=== PATIENT | male | born 1980 | race Caucasian/White ===

== ENCOUNTER 2017-03-19 09:51 | Inpatient (IN) | payer OTHER ==
[~2017-03-19] VITALS: Ht 177.8 cm; Wt 60.2 kg
[2017-03-19] MEDS ORDERED: LORazepam 2 MG/ML, 1ML ONE (09:57)
[2017-03-19] MEDS ORDERED: VANCOMYCIN PER PHARMACY MC ONE (10:00)
[2017-03-19] MEDS ORDERED: MIDAZOLAM 1 MG/ML, 5ML IVPush ONE (10:00)
[2017-03-19] MEDS ORDERED: SODIUM CHLORIDE 0.9% 1,000ML IVBOLUS ONE ×2 (10:00→11:00)
[2017-03-19] MEDS ORDERED: SUCCINYLCHOLINE 20 MG/ML, 10ML IVPush ONE (10:00)
[2017-03-19] MEDS ORDERED: CEFTRIAXONE PMX 1GM/50ML 50 ML IVPB ONE (10:00)
[2017-03-19] MEDS ORDERED: ACETAMINOPHEN 650 MG SUPP PR ONE (10:00)
[2017-03-19] MEDS ORDERED: SODIUM CHLORIDE FLUSH 10ML SYR IVF ONE (10:00)
[2017-03-19] MEDS ORDERED: DEXAMETHASONE 4 MG/ML, 5ML ONE (10:07)
[2017-03-19] MEDS ORDERED: CEFTRIAXONE 1,000 MG ONE (10:07)
[2017-03-19] MEDS: NOREPINEPHRINE 4 MG in SODIUM CHLORIDE 0.9% 246 ML IV PRN ×4 (10:26→23:51)
[2017-03-19] MEDS ORDERED: PLEASE ENTER ALLERGIES MC SCH ×2 (10:30)
[2017-03-19] MEDS ORDERED: PLEASE ENTER HEIGHT AND WEIGHT MC SCH (10:30)
[2017-03-19] MEDS ORDERED: DEXAMETHASONE 4 MG/ML, 1ML IVPush ONE (10:30)
[2017-03-19] MEDS ORDERED: DEXTROSE 5%, 250ML ONE (10:30)
[2017-03-19] MEDS ORDERED: NOREPINEPHRINE 1 MG/ML, 4ML ONE (10:30)
[2017-03-19] MEDS ORDERED: SODIUM CHLORIDE 0.9%, 250ML ONE (10:30)
[2017-03-19] MEDS ORDERED: PHENYLEPHRINE 10 MG/ML ONE (10:30)
[2017-03-19 10:34] LABS: ABG COLLECTION SITE RIGHT RADIAL; COLLATERAL CIRCULATION TESTING NORMAL; FIO2 60 %
[2017-03-19] MEDS: PHENYLEPHRINE 20 MG in SODIUM CHLORIDE 0.9% 248 ML IV PRN ×4 (10:34→23:32)
[2017-03-19 10:36] LABS: HEMATOCRIT 38.4 % (39.2-51.8); HEMOGLOBIN 12.8 g/dL (13.7-18.0); WHITE BLOOD COUNT 15.4 x10^3/uL (3.4-10)
[2017-03-19 10:49] LABS: ASPARTATE AMINO TRANSFERASE 52 U/L (15-37); BLOOD UREA NITROGEN 27 mg/dL (7-18)
[2017-03-19 10:57] LABS: RAPID INFLUENZA A Negative (Negative); RAPID INFLUENZA B Negative (Negative)
[2017-03-19] MEDS ORDERED: EPINEPHRINE SYRINGE 0.1 MG/ML, 10ML IVPush ONE ×2 (11:00)
[2017-03-19] MEDS ORDERED: VECURONIUM 10 MG IVPush ONE (11:00)
[2017-03-19] MEDS ORDERED: ACETAMINOPHEN 650 MG SUPP ONE (11:24)
[2017-03-19] MEDS ORDERED: CEFTRIAXONE PMX 1GM/50ML 50 ML IV ONE (12:00)
[2017-03-19] MEDS ORDERED: VECURONIUM 10 MG ONE (12:00)
[2017-03-19] MEDS ORDERED: MIDAZOLAM 1 MG/ML, 5ML ONE (12:00)
[2017-03-19] MEDS ORDERED: PROPOFOL 10 MG/ML, 100ML IV ONE (12:00)
[2017-03-19] MEDS ORDERED: SUCCINYLCHOLINE 20 MG/ML, 10ML ONE (12:00)
[2017-03-19 12:03] LABS: PATH.CAST-FLAG NOT PRESENT; SPERM-FLAG NOT PRESENT; SRC-FLAG NOT PRESENT; XTAL-FLAG NOT PRESENT; YLC-FLAG NOT PRESENT
[2017-03-19] MEDS ORDERED: CEFTRIAXONE PMX 1GM/50ML 50 ML ONE (12:04)
[2017-03-19 12:14] LABS: ABG COLLECTION SITE RIGHT RADIAL; COLLATERAL CIRCULATION TESTING NORMAL
[2017-03-19 12:15] LABS: FIO2 100 %
[2017-03-19] MEDS ORDERED: POLYETHYLENE GLYCOL 17 GM PACKET PO PRN (12:30)
[2017-03-19] MEDS ORDERED: BISACODYL 10 MG SUPP PR PRN (12:30)
[2017-03-19] MEDS ORDERED: PHARMACOKINETIC CONSULTATION MC ONE (12:30)
[2017-03-19] MEDS ORDERED: VANCOMYCIN 1,200 MG in SODIUM CHLORIDE 0.9% 250 ML IV ONE (12:30)
[2017-03-19] MEDS ORDERED: VANCOMYCIN PER PHARMACY MC PRN (12:30)
[2017-03-19] MEDS ORDERED: FENTANYL PF 2,500 MCG in SODIUM CHLORIDE 0.9% 200 ML IV PRN (12:34)
[2017-03-19] MEDS: ACYCLOVIR 600 MG in SODIUM CHLORIDE 0.9% 250 ML IV SCH (13:17)
[2017-03-19] MEDS: SODIUM CHLORIDE 0.9% 1,000 ML IV SCH (13:22)
[2017-03-19] MEDS ORDERED: PROPOFOL 100 ML IV PRN (14:00)
[2017-03-19] MEDS: AMPICILLIN 2 GM in SODIUM CHLORIDE 0.9% 100 ML IV SCH ×3 (14:40→21:26)
[2017-03-19] MEDS ORDERED: VASOPRESSIN 100 UNIT in SODIUM CHLORIDE 0.9% 495 ML IV PRN (14:55)
[2017-03-19] MEDS ORDERED: PHARMACY MAY ADJ FOR RENAL FX MC SCH (15:00)
[2017-03-19] MEDS ORDERED: LIDOCAINE-MPF 1%, 2ML ENDO PRN (15:00)
[2017-03-19] MEDS ORDERED: ACETAMINOPHEN 650 MG/20.3 ML UDC NG PRN (15:00)
[2017-03-19 15:30] LABS: HIV 1&2 ANTIBODY SCREEN Nonreactive (Nonreactive); HIV-1 p24 ANTIGEN Nonreactive (Nonreactive)
[2017-03-19] MEDS: DEXAMETHASONE 4 MG/ML, 5ML IV SCH ×2 (16:58→23:18)
[2017-03-19] MEDS: OSELTAMIVIR 6 MG/ML ORAL SUSP PO SCH (21:26)
[2017-03-20] MEDS: CEFTRIAXONE PMX 2GM/50ML 50 ML IV SCH ×2 (00:20→11:59)
[2017-03-20] MEDS: ACYCLOVIR 600 MG in SODIUM CHLORIDE 0.9% 250 ML IV SCH ×3 (00:22→12:00)
[2017-03-20] MEDS: AMPICILLIN 2 GM in SODIUM CHLORIDE 0.9% 100 ML IV SCH ×6 (02:34→23:07)
[2017-03-20] MEDS ORDERED: NOREPINEPHRINE 8 MG in SODIUM CHLORIDE 0.9% 242 ML IV PRN (02:55)
[2017-03-20 03:30] VITALS: BP 119/75
[2017-03-20 04:12] LABS: HEMATOCRIT 40.3 % (39.2-51.8); HEMOGLOBIN 13.5 g/dL (13.7-18.0); WHITE BLOOD COUNT 18.2 x10^3/uL (3.4-10)
[2017-03-20 04:24] LABS: ASPARTATE AMINO TRANSFERASE 137 U/L (15-37); BLOOD UREA NITROGEN 21 mg/dL (7-18)
[2017-03-20 04:50] LABS: ABG COLLECTION SITE LEFT BRACHIAL
[2017-03-20] MEDS ORDERED: SODIUM BICARB 8.4%, 50ML SYRINGE IVPush STA (05:03)
[2017-03-20] MEDS: SODIUM CHLORIDE 0.9% 1,000 ML IV SCH ×3 (05:13→20:33)
[2017-03-20] MEDS: DEXAMETHASONE 4 MG/ML, 5ML IV SCH ×4 (05:27→23:07)
[2017-03-20] MEDS ORDERED: SODIUM BICARB 8.4%, 50ML SYRINGE IVPush ONE (05:30)
[2017-03-20 08:07] LABS: HSV 1 IGG TYPE SPECIFIC <0.91 index (0.00-0.90); HSV 2 IGG TYPE SPECIFIC <0.91 index (0.00-0.90)
[2017-03-20] MEDS: FAMOTIDINE 20 MG/2 ML IVPush SCH (10:07)
[2017-03-20] MEDS: OSELTAMIVIR 6 MG/ML ORAL SUSP PO SCH ×2 (10:07→20:32)
[2017-03-20] MEDS: CLINDAMYCIN PMX 900MG/50ML 50 ML IV SCH ×2 (11:59→20:32)
[2017-03-20 12:02] LABS: ABG COLLECTION SITE LEFT RADIAL; COLLATERAL CIRCULATION TESTING NORMAL
[2017-03-20] MEDS: PROPOFOL 100 ML IV PRN (17:35)
[2017-03-20] MEDS: HEPARIN 5,000 UNITS/ML, 1ML SQ SCH (18:15)
[2017-03-21] MEDS: CEFTRIAXONE PMX 2GM/50ML 50 ML IV SCH ×2 (00:45→12:30)
[2017-03-21] MEDS: ACYCLOVIR 600 MG in SODIUM CHLORIDE 0.9% 250 ML IV SCH (00:45)
[2017-03-21] MEDS: AMPICILLIN 2 GM in SODIUM CHLORIDE 0.9% 100 ML IV SCH ×2 (02:35→06:36)
[2017-03-21] MEDS: HEPARIN 5,000 UNITS/ML, 1ML SQ SCH ×3 (02:35→18:29)
[2017-03-21 04:00] VITALS: BP 124/82
[2017-03-21 04:58] LABS: ABG COLLECTION SITE RIGHT RADIAL; COLLATERAL CIRCULATION TESTING NORMAL
[2017-03-21] MEDS: CLINDAMYCIN PMX 900MG/50ML 50 ML IV SCH ×3 (05:04→20:31)
[2017-03-21] MEDS: DEXAMETHASONE 4 MG/ML, 5ML IV SCH ×4 (05:04→20:31)
[2017-03-21] MEDS: PROPOFOL 100 ML IV PRN (05:05)
[2017-03-21] MEDS: SODIUM CHLORIDE 0.9% 1,000 ML IV SCH (05:33)
[2017-03-21 05:50] LABS: HEMATOCRIT 31.2 % (39.2-51.8); HEMOGLOBIN 10.6 g/dL (13.7-18.0); WHITE BLOOD COUNT 7.7 x10^3/uL (3.4-10)
[2017-03-21 06:07] LABS: ASPARTATE AMINO TRANSFERASE 115 U/L (15-37); BLOOD UREA NITROGEN 26 mg/dL (7-18)
[2017-03-21 06:13] VITALS: BP 124/82
[2017-03-21] MEDS: OSELTAMIVIR 6 MG/ML ORAL SUSP PO SCH ×2 (09:32→20:31)
[2017-03-21] MEDS: FAMOTIDINE 20 MG/2 ML IVPush SCH (09:32)
[2017-03-21 11:06] LABS: HSV 1 IGM TYPE SPECIFIC <1:10 titer (<1:10); HSV 2 IGM TYPE SPECIFIC <1:10 titer (<1:10)
[2017-03-21 20:06] LABS: HERPES SIMPLEX VIRUS-1 DNA PCR Negative (Negative); HERPES SIMPLEX VIRUS-2 DNA PCR Negative (Negative)
[2017-03-22] MEDS: CEFTRIAXONE PMX 2GM/50ML 50 ML IV SCH ×3 (00:20→23:55)
[2017-03-22] MEDS: HEPARIN 5,000 UNITS/ML, 1ML SQ SCH ×3 (02:44→17:13)
[2017-03-22 04:00] VITALS: BP 108/82
[2017-03-22 04:28] LABS: ABG COLLECTION SITE RIGHT RADIAL; COLLATERAL CIRCULATION TESTING NORMAL
[2017-03-22] MEDS: SODIUM CHLORIDE 0.9% 1,000 ML IV SCH ×4 (04:43→20:15)
[2017-03-22] MEDS: CLINDAMYCIN PMX 900MG/50ML 50 ML IV SCH ×3 (04:43→20:22)
[2017-03-22] MEDS: DEXAMETHASONE 4 MG/ML, 5ML IV SCH ×4 (04:44→22:16)
[2017-03-22 04:59] LABS: HEMATOCRIT 28.6 % (39.2-51.8); HEMOGLOBIN 9.8 g/dL (13.7-18.0)
[2017-03-22 08:39] LABS: BLOOD UREA NITROGEN 24 mg/dL (7-18)
[2017-03-22 08:44] LABS: ASPARTATE AMINO TRANSFERASE 88 U/L (15-37)
[2017-03-22] MEDS: FAMOTIDINE 20 MG/2 ML IVPush SCH (09:55)
[2017-03-22] MEDS: OSELTAMIVIR 6 MG/ML ORAL SUSP PO SCH ×2 (09:55→21:02)
[2017-03-22] MEDS ORDERED: GADOBUTROL 7.5 MMOL/7.5 ML PFS ONE (13:22)
[2017-03-22] MEDS: PICC FLUSH PROTOCOL XX SCH (19:30)
[2017-03-23] MEDS: HEPARIN 5,000 UNITS/ML, 1ML SQ SCH ×3 (02:11→18:11)
[2017-03-23] MEDS: PICC FLUSH PROTOCOL XX SCH ×3 (03:30→19:30)
[2017-03-23] MEDS: DEXAMETHASONE 4 MG/ML, 5ML IV SCH (03:50)
[2017-03-23] MEDS: CLINDAMYCIN PMX 900MG/50ML 50 ML IV SCH ×4 (03:50→20:24)
[2017-03-23 04:10] VITALS: BP 94/58
[2017-03-23 04:30] LABS: BLOOD UREA NITROGEN 22 mg/dL (7-18)
[2017-03-23 04:32] LABS: HEMATOCRIT 28.5 % (39.2-51.8); HEMOGLOBIN 9.9 g/dL (13.7-18.0); WHITE BLOOD COUNT 3.3 x10^3/uL (3.4-10)
[2017-03-23] MEDS: OSELTAMIVIR 6 MG/ML ORAL SUSP PO SCH (09:16)
[2017-03-23] MEDS: CEFTRIAXONE PMX 2GM/50ML 50 ML IV SCH (11:54)
[2017-03-23 18:56] VITALS: BP 102/65
[2017-03-23] MEDS: OSELTAMIVIR 75 MG CAPSULE PO SCH (20:24)
[2017-03-24] MEDS: CEFTRIAXONE PMX 2GM/50ML 50 ML IV SCH ×3 (00:16→23:58)
[2017-03-24] MEDS: HEPARIN 5,000 UNITS/ML, 1ML SQ SCH ×3 (01:09→17:36)
[2017-03-24] MEDS: PICC FLUSH PROTOCOL XX SCH ×3 (01:14→19:30)
[2017-03-24] MEDS: CLINDAMYCIN PMX 900MG/50ML 50 ML IV SCH (03:31)
[2017-03-24 05:33] VITALS: BP 102/62
[2017-03-24 07:48] VITALS: BP 101/63
[2017-03-24] MEDS: OSELTAMIVIR 75 MG CAPSULE PO SCH ×2 (10:31→20:11)
[2017-03-24 13:44] VITALS: BP 102/62
[2017-03-24 19:04] VITALS: BP 98/59
[2017-03-25 01:09] VITALS: BP 101/53
[2017-03-25] MEDS: HEPARIN 5,000 UNITS/ML, 1ML SQ SCH ×3 (02:00→17:26)
[2017-03-25] MEDS: PICC FLUSH PROTOCOL XX SCH ×3 (02:47→19:30)
[2017-03-25 05:53] LABS: BLOOD UREA NITROGEN 13 mg/dL (7-18)
[2017-03-25 06:16] LABS: ASPARTATE AMINO TRANSFERASE 35 U/L (15-37)
[2017-03-25 06:47] LABS: HEMATOCRIT 29.8 % (39.2-51.8); HEMOGLOBIN 10.1 g/dL (13.7-18.0); WHITE BLOOD COUNT 7.9 x10^3/uL (3.4-10)
[2017-03-25] MEDS ORDERED: POTASSIUM CHLORIDE 20 MEQ TAB.ER.PRT PO ONE (07:30)
[2017-03-25 08:00] VITALS: BP 111/67
[2017-03-25] MEDS: OSELTAMIVIR 75 MG CAPSULE PO SCH ×2 (08:03→20:23)
[2017-03-25] MEDS: CEFTRIAXONE PMX 2GM/50ML 50 ML IV SCH ×2 (12:34→23:44)
[2017-03-25 14:00] VITALS: BP 112/67
[2017-03-25 19:28] VITALS: BP 101/67
[2017-03-25 21:06] LABS: ADENOVIRUS PCR Negative (Negative); INFLUENZA A PCR Negative (Negative); INFLUENZA B PCR Negative (Negative); METAPNEUMOVIRUS PCR Negative (Negative); PARAINFLUENZA 1 PCR Negative (Negative); PARAINFLUENZA 2 PCR Negative (Negative); PARAINFLUENZA 3 PCR Negative (Negative); RESP SYNCYTIAL VIRUS A PCR Negative (Negative); RESP SYNCYTIAL VIRUS B PCR Negative (Negative); RHINOVIRUS PCR Negative (Negative)
[2017-03-26 01:07] VITALS: BP 107/67
[2017-03-26] MEDS: HEPARIN 5,000 UNITS/ML, 1ML SQ SCH ×2 (01:31→09:12)
[2017-03-26] MEDS: PICC FLUSH PROTOCOL XX SCH (01:32)
[2017-03-26 06:34] VITALS: BP 100/64
[2017-03-26] MEDS: OSELTAMIVIR 75 MG CAPSULE PO SCH (09:12)
[2017-03-26] MEDS ORDERED: CEFTRIAXONE PMX 2GM/50ML 50 ML IV SCH (10:00)
== END 2017-03-26 11:53 | disposition home or self-care (01) | DRG 871 ==
LOC: ED 10:24 → EDIP 11:01 → ICU 12:35 → ED 14:32 → CCU 03-20 16:03 → 3NE 03-23 14:16 → DCLOUNGE 03-26 11:44
PROVIDERS: ADMIT Hospitalist; ATTEND Internal Medicine
PROC: 0T9B70Z Drainage of Bladder with Drainage Device, Via Natural or Artificial Opening (ICD-10-PCS; principal; 2017-03-19)
PROC: 5A1945Z Respiratory Ventilation, 24-96 Consecutive Hours (ICD-10-PCS; 2017-03-19)
PROC: 0BH17EZ Insertion of Endotracheal Airway into Trachea, Via Natural or Artificial Opening (ICD-10-PCS; 2017-03-19)
PROC: 02HV33Z Insertion of Infusion Device into Superior Vena Cava, Percutaneous Approach (ICD-10-PCS; 2017-03-22)
PROC: B548ZZA Ultrasonography of Superior Vena Cava, Guidance (ICD-10-PCS; 2017-03-22)
DX: A40.9 Streptococcal sepsis, unspecified (principal); G03.9 Meningitis, unspecified; J96.01 Acute respiratory failure with hypoxia; N17.0 Acute kidney failure with tubular necrosis; Z99.11 Dependence on respirator [ventilator] status; J18.9 Pneumonia, unspecified organism; R65.21 Severe sepsis with septic shock; G93.41 Metabolic encephalopathy; E16.2 Hypoglycemia, unspecified; J02.0 Streptococcal pharyngitis; J32.0 Chronic maxillary sinusitis; Z83.3 Family history of diabetes mellitus
CPT/HCPCS: 31500; 36415; 36556; 36569; 36600; 70450; 70553; 71010; 76937; 77001; 80048; 80053; 80202; 81001; 82803; 83605; 83735; 84100; 84145; 84478; 85025; 85610; 85651; 85730; 86140; 86592; 86695; 86696; 86703; 86738; 87040; 87070; 87081; 87147; 87181; 87205; 87324; 87400; 87449; 87529; 87536; 87633; 87798; 87880; 87899; 93005; 93306; 94002; 94003; 94150; 96365; 96375; 99292; A9585; J0133; J0290; J0696; J1100; J1644; J2250; J2704; J3370; J7060; C1751; C1769; G0435; J0330; J2370; J7030; J7050; S0028